=== PATIENT | female | born 2000 | race African-American/Black ===

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

== ENCOUNTER 2019-08-26 12:04 | Emergency (ER) | payer OTHER, MEDICAID ==
[2019-08-26] MEDS ORDERED: ACETAMINOPHEN 325 MG TABLET PO ONE (12:45)
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
[2019-08-26] MEDS ORDERED: IBUPROFEN 600 MG TABLET PO ONE (15:33)
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
[2019-08-26 15:56] VITALS: BP 127/69
== END 2019-08-26 16:00 | disposition home or self-care (01) ==
LOC: ER 12:04
DX: M79.652 Pain in left thigh (principal); R51 Headache; V49.40XA Driver injured in collision with unspecified motor vehicles in traffic accident, initial encounter
CPT/HCPCS: 99283